=== PATIENT | female | born 1985 | race Caucasian/White ===

== ENCOUNTER 2016-12-21 19:00 | Emergency (ER) | payer OTHER, MEDICAID ==
[2016-12-21 23:58] LABS: BASOPHIL % 1.8 % (0-2); RED CELL DISTRIBUTION WIDTH 12.7 % (11.5-14.5)
[2016-12-22 00:06] LABS: PLATELET COUNT 438 x10^3mcL (130-400)
== END 2016-12-22 01:10 | disposition home or self-care (01) ==
LOC: ED 19:00
PROVIDERS: Emergency Medicine
DX: O20.0 Threatened abortion (principal); Z3A.11 11 weeks gestation of pregnancy
CPT/HCPCS: 36415

== ENCOUNTER 2017-04-08 06:07 | Emergency (ER) | payer OTHER, MEDICAID ==
[2017-04-08 06:45] LABS: microscopic required? YES; urine erythrocyte TRACE (NEGATIVE)
[2017-04-08 07:15] LABS: CALCIUM 8.9 mg/dL (8.5-10.1); CARBON DIOXIDE 24.8 mmol/L (21-32); CHLORIDE SERUM 105 mmol/L (98-107); CREATININE SERUM 0.6 mg/dL (0.6-1.0); GFR1 > 60 mL/min; GLUCOSE SERUM 102 mg/dL (74-106); POTASSIUM SERUM 4.1 mmol/L (3.5-5.1); SODIUM SERUM 136 mmol/L (136-145)
[2017-04-08 07:20] LABS: ALKALINE PHOSPHATASE 158 U/L (46-116); ALT/SGPT 31 U/L (14-59); AST/SGOT 17 U/L (15-37); BILIRUBIN TOTAL 0.26 mg/dL (0.20-1.00); TOTAL PROTEIN, SERUM 7.2 g/dL (6.4-8.2)
[2017-04-08 07:25] LABS: BASOPHIL % 0.3 % (0-2); PLATELET COUNT 397 x10^3mcL (130-400); RED CELL DISTRIBUTION WIDTH 13.4 % (11.5-14.5)
[2017-04-08 07:27] LABS: ALBUMIN 2.5 g/dL (3.4-5.0)
[2017-04-08 08:42] VITALS: BP 144/78
== END 2017-04-08 08:41 | disposition short-term general hospital (02) ==
LOC: ED 06:07
PROVIDERS: Specialist
DX: O26.852 Spotting complicating pregnancy, second trimester (principal); Z3A.24 24 weeks gestation of pregnancy
CPT/HCPCS: 36415